=== PATIENT | female | born 1995 | race African-American/Black ===

== ENCOUNTER 2017-11-26 19:34 | Emergency (ER) | payer OTHER, SELFPAY ==
[2017-11-26 22:52] LABS: Absolute Monocytes 0.4 K/uL (0.1-1.3); Absolute Neutrophil 2.1 K/uL (1.8-8.0); Basophils % 0.7 % (0-1.3); Eosinophils % 6.1 % (0-4.4); Hematocrit 38.2 % (36.0-45.0); Lymphocytes % 40.4 % (15.3-44.8); MCH 32.3 pg (27.0-35.0); MCV 94.3 fL (80-100); MPV 8.6 fL (7.6-11.3); RBC Red Blood Cell Count 4.05 M/uL (3.86-4.86)
[2017-11-26 23:02] LABS: ALT/SGPT 48 U/L (12-78); AST/SGOT 39 U/L (15-37); Albumin 4.4 g/dL (3.4-5.0); Alkaline Phosphatase 56 U/L (45-117); BUN Blood Urea Nitrogen 9 mg/dL (7-18); Bicarbonate 23 mmol/L (21-32); Bilirubin Direct 0.1 mg/dL (0-0.2); Bilirubin Total 0.3 mg/dL (0.2-1.0); Glucose Level 93 mg/dL (74-106); Lipase 114 U/L (73-393); Potassium 3.5 mmol/L (3.5-5.1); Protein, Total 8.3 g/dL (6.4-8.2); Sodium Level 142 mmol/L (136-145)
[2017-11-27 01:01] LABS: Urine Blood 3+ (NEG); Urine Glucose NEGATIVE (NEG); Urine Protein TRACE (NEG)
--- NOTE | 2017-11-27 02:28 | EDPHYS ---
Physician Documentation [facility] Name: Jolene Ackerman Age: 22 yrs Sex: Female : 1995 Arrival Date: 11/26/2017 Time: 19:39 Bed 5 Private MD: ED Physician Braydon Alvarado HPI: 11/26 22:00 This 22 yrs old Black Female presents to ER via Ambulatory with complaints of Abdominal pm1 Problem. 22:00 The patient presents with abdominal mass. Onset: The symptoms/episode began/occurred pm1 4-5 months . Associated signs and symptoms: Pertinent negatives: nausea, vomiting, and diarrhea, chest pain, dysuria, fever, headache, shortness of breath, abdominal pain. Severity of pain: At its worst the pain was a 0 / 10 in the emergency department the pain is a 0 / 10. The patient has not recently seen a physician. Patient noticed the mass on her lower stomach multiple months ago but noticed it getting larger over the past 4-5 months. 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 - Social history:: Smoking status: Patient/guardian denies using tobacco. - Ebola Screening: : Patient denies travel to an Ebola-affected area in the 21 days before illness onset. ROS: 22:00 Constitutional: Negative for fever, chills, and weight loss, Eyes: Negative for injury, pm1 pain, redness, and discharge, ENT: Negative for injury, pain, and discharge, Neck: Negative for injury, pain, and swelling, Cardiovascular: Negative for chest pain, palpitations, and edema, Respiratory: Negative for shortness of breath, cough, wheezing, and pleuritic chest pain. 22:00 Back: Negative for injury and pain, : Negative for injury, bleeding, discharge, and swelling, MS/Extremity: Negative for injury and deformity, Skin: Negative for injury, rash, and discoloration, Neuro: Negative for headache, weakness, numbness, tingling, and seizure. 22:00 Abdomen/GI: Positive for abdominal mass, Negative for abdominal pain, nausea, vomiting, and diarrhea. Exam: 22:00 Constitutional: This is a well developed, well nourished patient who is awake, alert, pm1 and in no acute distress. Head/Face: Normocephalic, atraumatic. Eyes: Pupils equal round and reactive to light, extra-ocular motions intact. Lids and lashes normal. Conjunctiva and sclera are non-icteric and not injected. Cornea within normal limits. Periorbital areas with no swelling, redness, or edema. ENT: Nares patent. No nasal discharge, no septal abnormalities noted. Tympanic membranes are normal and external auditory canals are clear. Oropharynx with no redness, swelling, or masses, exudates, or evidence of obstruction, uvula midline. Mucous membranes moist. Neck: Trachea midline, no thyromegaly or masses palpated, and no cervical lymphadenopathy. Supple, full range of motion without nuchal rigidity, or vertebral point tenderness. No Meningismus. Chest/axilla: Normal chest wall appearance and motion. Nontender with no deformity. No lesions are appreciated. Cardiovascular: Regular rate and rhythm with a normal S1 and S2. No gallops, murmurs, or rubs. Normal PMI, no JVD. No pulse deficits. Respiratory: Lungs have equal breath sounds bilaterally, clear to auscultation and percussion. No rales, rhonchi or wheezes noted. No increased work of breathing, no retractions or nasal flaring. 22:00 Back: No spinal tenderness. No costovertebral tenderness. Full range of motion. Skin: Warm, dry with normal turgor. Normal color with no rashes, no lesions, and no evidence of cellulitis. MS/ Extremity: Pulses equal, no cyanosis. Neurovascular intact. Full, normal range of motion. 22:00 Abdomen/GI: Inspection: abdomen appears normal, Bowel sounds: normal, Palpation: abdomen is soft and non-tender, mass, large mass present to from lower abdomen to 4 cm above umbilicus with gravid-like appearance - negative. 22:00 Neuro: Orientation: is normal, Motor: moves all fours. Vital Signs: 19:45 BP 124 / 96; Pulse 92; Resp 18; Temp 98.0(O); Pulse Ox 100% on R/A; Weight 72.57 kg hb (R); Height 5 ft. 4 in. (162.56 cm) (R); Pain 0/10; 21:10 BP 133 / 80; Pulse 74; Pulse Ox 100% on R/A; rv 11/27 00:04 BP 119 / 85; Pulse 54; Pulse Ox 100% ; rv 00:54 BP 114 / 85; Pulse 67; Resp 14; Pulse Ox 100% on R/A; lp1 02:00 BP 118 / 91; Pulse 60; Resp 16; Pulse Ox 100% on R/A; lp1 11/26 19:45 Body Mass Index 27.46 (72.57 kg, 162.56 cm) hb MDM: 11/26 21:34 Patient medically screened. pm1 11/27 02:20 ED course: Consult with Dr. Alvarado, patient can follow up with Dr. Max. No need to pm1 contact Dr. Max today since there is no surgical emergency. Patient without any abdominal pain or shortness of breath. Patient with normal bowel movements and passing gas. No urinary complaints or symptoms. 02:25 Data reviewed: vital signs. Data interpreted: Pulse oximetry: on room air is 100 %. pm1 Interpretation: normal. Counseling: I had a detailed discussion with the patient and/or guardian regarding: the historical points, exam findings, and any diagnostic results supporting the discharge/admit diagnosis, lab results, radiology results, the need for outpatient follow up, an OB/Gyne specialist, Gyne Surgery, to return to the emergency department if symptoms worsen or persist or if there are any questions or concerns that arise at home. 11/26 21:44 Order name: Basic Metabolic Panel; Complete Time: 23:25 pm1 11/26 21:44 Order name: CBC with Diff; Complete Time: 23:25 pm1 11/26 21:44 Order name: Creatinine for Radiology; Complete Time: 23:25 pm1 11/26 21:44 Order name: Hepatic Function; Complete Time: 23:25 pm1 11/26 21:44 Order name: Lipase; Complete Time: 23:25 pm1 11/26 21:44 Order name: Test, Serum; Complete Time: 23:25 pm1 11/26 21:44 Order name: IV Saline Lock; Complete Time: 22:11 pm1 11/26 21:44 Order name: Labs collected and sent; Complete Time: 22:11 pm1 11/26 21:44 Order name: Urine Dipstick-Ancillary (obtain specimen); Complete Time: 21:49 pm1 11/26 21:44 Order name: Urine Test (obtain specimen); Complete Time: 21:49 pm1 11/26 21:45 Order name: CT Abd/Pelvis - W/Contrast: IV contrast only pm1 11/26 21:50 Order name: Urine Dipstick--Ancillary (enter results); Complete Time: 01:03 cc 11/26 21:51 Order name: Urine --Ancillary (enter results); Complete Time: 01:03 cc Administered Medications: No medications were administered Disposition: 02:43 Co-signature as Attending Physician, Braydon Alvarado MD. [facility] Disposition: 11/27/17 02:28 Discharged to Home. Impression: Leiomyoma of uterus. - Condition is Stable. - Discharge Instructions: Uterine Fibroids. - Medication Reconciliation Form, Thank You Letter form. - Follow up: Emergency Department; When: As needed; Reason: Worsening of condition. Follow up: Private Physician; When: 2 - 3 days; Reason: Recheck today's complaints, Continuance of care, Re-evaluation by your physician. Follow up: Diamond Max MD; When: 2 - 3 days; Reason: Recheck today's complaints, Continuance of care, Re-evaluation by your physician. - Problem is new. - Symptoms have improved. Signatures: Dispatcher [employer] EDBraydon Garcia MD MD [facility] Stacie Chavez RN RN lp1 Sunny Godoy, SHOWPLACE MANAGER SHOWPLACE MANAGER pm1 Gloria Gomez, RN RN Corrections: (The following items were deleted from the chart) 02:29 02:28 11/27/2017 02:28 Discharged to Home. Impression: Leiomyoma of uterus. Condition pm1 is Stable. Forms are Medication Reconciliation Form, Thank You Letter, Antibiotic Education, Prescription Opioid Use. Follow up: Emergency Department; When: As needed; Reason: Worsening of condition. Follow up: Private Physician; When: 2 - 3 days; Reason: Recheck today's complaints, Continuance of care, Re-evaluation by your physician. Problem is new. Symptoms have improved. pm1 02:37 02:29 11/27/2017 02:28 Discharged to Home. Impression: Leiomyoma of uterus. Condition lp1 is Stable. Discharge Instructions: Uterine Fibroids. Forms are Medication Reconciliation Form, Thank You Letter. Follow up: Emergency Department; When: As needed; Reason: Worsening of condition. Follow up: Private Physician; When: 2 - 3 days; Reason: Recheck today's complaints, Continuance of care, Re-evaluation by your physician. Follow up: Diamond Max; When: 2 - 3 days; Reason: Recheck today's complaints, Continuance of care, Re-evaluation by your physician. Problem is new. Symptoms have improved. pm1
--- NOTE | 2017-11-27 02:28 | ER ---
Nurse's Notes [facility] Name: Jolene Ackerman Age: 22 yrs Sex: Female : 1995 Arrival Date: 11/26/2017 Time: 19:39 Bed 5 Private MD: Diagnosis: Leiomyoma of uterus Presentation: 11/26 19:41 Presenting complaint: Patient states: "I feel like I have a lump in my stomach." hb Reports that she has had this sensation for the past couple months. Denies N/V. Reports diarrhea. Denies fever. Reports lower abdominal cramping. Patient reports that [facility], but she started having some shortness of breath that she describes as "Occasional" so she decided to come to the emergency room for evaluation. Transition of care: patient was not received from another setting of care. Onset of symptoms was August 2017. Risk Assessment: Do you want to hurt yourself or someone else? Patient reports no desire to harm self or others. Initial Sepsis Screen: Does the patient meet any 2 criteria? No. Patient's initial sepsis screen is negative. Does the patient have a suspected source of infection? No. Patient's initial sepsis screen is negative. Care prior to arrival: None. 19:41 Method Of Arrival: Ambulatory 19:41 Acuity: GRANT 3 hb Triage Assessment: 19:45 General: Appears in no apparent distress. comfortable, Behavior is calm, cooperative, hb appropriate for age. Pain: Denies pain. Neuro: Level of Consciousness is awake, alert, obeys commands. Cardiovascular: Patient's skin is warm and dry. Respiratory: Airway is patent Respiratory effort is even, unlabored, Respiratory pattern is regular, symmetrical. GI: Reports bloating, cramping, diarrhea. Derm: Skin is pink, warm \\T\\ dry. normal. Musculoskeletal: Circulation, motion, and sensation intact. 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 - Social history:: Smoking status: Patient/guardian denies using tobacco. - Ebola Screening: : Patient denies travel to an Ebola-affected area in the 21 days before illness onset. Screenin:04 Abuse screen: Denies threats or abuse. Denies injuries from another. Nutritional rv screening: No deficits noted. Tuberculosis screening: No symptoms or risk factors identified. Fall Risk None identified. Assessment: 21:01 General: Appears in no apparent distress. comfortable, Behavior is calm, cooperative. rv Pain: Complains of pain in abdomen. Neuro: Level of Consciousness is awake, alert, obeys commands, Oriented to person, place, time, situation. Cardiovascular: Capillary refill < 3 seconds. Respiratory: Airway is patent. GI: No signs and/or symptoms were reported involving the gastrointestinal system. : No signs and/or symptoms were reported regarding the genitourinary system. EENT: No signs and/or symptoms were reported regarding the EENT system. Derm: Skin is intact. 11/27 00:53 Reassessment: Patient returned from CT at this time. lp1 00:53 Reassessment: Patient appears in no apparent distress at this time. Patient is alert, lp1 oriented x 3, equal unlabored respirations, skin warm/dry/pink. Patient denies pain at this time. 02:00 Reassessment: Patient appears in no apparent distress at this time. Patient and/or lp1 family updated on plan of care and expected duration. Pain level reassessed. Patient is alert, oriented x 3, equal unlabored respirations, skin warm/dry/pink. Vital Signs: 11/26 19:45 BP 124 / 96; Pulse 92; Resp 18; Temp 98.0(O); Pulse Ox 100% on R/A; Weight 72.57 kg hb (R); Height 5 ft. 4 in. (162.56 cm) (R); Pain 0/10; 21:10 BP 133 / 80; Pulse 74; Pulse Ox 100% on R/A; rv 11/27 00:04 BP 119 / 85; Pulse 54; Pulse Ox 100% ; rv 00:54 BP 114 / 85; Pulse 67; Resp 14; Pulse Ox 100% on R/A; lp1 02:00 BP 118 / 91; Pulse 60; Resp 16; Pulse Ox 100% on R/A; lp1 11/26 19:45 Body Mass Index 27.46 (72.57 kg, 162.56 cm) hb ED Course: 11/26 19:39 Patient arrived in ED. ag3 19:44 Triage completed. hb 19:47 Arm band placed on Patient placed in waiting room, Patient notified of wait time. hb 21:04 Patient has correct armband on for positive identification. Bed in low position. Call rv light in reach. Side rails up X 1. Adult w/ patient. Pulse ox on. NIBP on. 21:34 Sunny Godoy NP is PHCP. pm1 21:34 Braydon Alvarado MD is Attending Physician. pm1 21:50 Radiology exam delayed due to lab results not completed at this time. (BUN/Creatinine) test not completed at this time. 22:41 Radiology exam delayed due to lab results not completed at this time. (BUN/Creatinine) tx test not completed at this time. 22:48 Radiology exam delayed due to lab results not completed at this time. (BUN/Creatinine) tx test not completed at this time. 23:00 Inserted saline lock: 20 gauge in right antecubital area, using aseptic technique. rv Blood collected. 23:06 Radiology exam delayed due to test not completed at this time. tx 11/27 00:[address] via wheelchair. kw1 00:31 CT Abd/Pelvis - W/Contrast: IV contrast only In Process Unspecified. EDMS 00:32 CT completed. Patient tolerated procedure well. Patient moved back from CT. kw1 00:53 Stacie Chavez, RN is Primary Nurse. lp1 02:29 Diamond Max MD is Referral Physician. pm1 02:37 No provider procedures requiring assistance completed. IV discontinued, No lp1 redness/swelling at site. Pressure dressing applied. Administered Medications: No medications were administered Outcome: 02:28 Discharge ordered by . pm1 02:37 Discharged to home ambulatory, with family. lp1 02:37 Condition: good 02:37 Discharge instructions given to patient, Instructed on discharge instructions, follow up and referral plans. Demonstrated understanding of instructions, follow-up care. 02:37 Patient left the ED. lp1 Signatures: Dispatcher [employer] EDMS Stacie Chavez, FRANKI RN lp1 Mary Garland Sunny Godoy NP DIXONAC OPERATOR pm1 Gloria Gomez RN RN Braxton [place] Lorraine Muhammad kw1 Devan Bernabe, RN RN rv Lesly Grant ag3
--- NOTE | 2017-11-27 08:28 | RAD REPORT ---
EXAM DESCRIPTION: CT - Abdomen Pelvis W Contrast - 11/27/2017 3:14 am CLINICAL HISTORY: Abdominal pain with nausea. COMPARISON: none. TECHNIQUE: Computed axial tomography of the abdomen pelvis was obtained. 100 cc Isovue-300 was admin istered intravenously. Oral contrast was not requested which limits evaluation of bowel. A preliminar y report was generated by [facility] and reviewed prior to this dictation All CT scans are performed using dose optimization technique as appropriate and may include automated exposure control or mA/KV adjustment according to patient size. FINDINGS: The liver, spleen, pancreas, adrenal and kidneys appear unremarkable. A 24 centimeter solid mass abuts the uterus and extends into the mid abdomen. It mostly extends to th e right. Bowel is compressed and deviated. The mass is heterogeneous. Significant free fluid is not noted. A tampon is present within the vagina. IMPRESSION: 24 centimeter pelvic mass extending into the abdomen may represent a leiomyoma, leiomyo sarcoma, ovarian mass or sarcoma.
== END 2017-11-27 02:37 | disposition home or self-care (01) ==
LOC: ER 19:34
DX: D25.9 Leiomyoma of uterus, unspecified (principal); J45.909 Unspecified asthma, uncomplicated
CPT/HCPCS: 36415; 74177; 80048; 80076; 81003; 81025; 83690; 84703; 85025; 99284; Q9967